=== PATIENT | male | born 1965 ===

== ENCOUNTER 2017-12-18 09:50 | Outpatient (CLI) | payer MEDICARE ==
--- NOTE | 2017-12-18 12:19 | XRay Report ---
RIGHT SHOULDER: Pain. Routine views demonstrate normal bony and soft tissue structures with normal joint alignment of the shoulder. IMPRESSION: Normal study.
== END 2017-12-18 09:51 | disposition home or self-care (01) ==
LOC: SPVIMAG 09:50
PROVIDERS: ATTEND Orthopaedic Surgery Sports Medicine
DX: M25.511 Pain in right shoulder (principal)